=== PATIENT | male | born 1945 | race Caucasian/White ===

== ENCOUNTER 2020-11-16 03:20 | Emergency (ER) | payer OTHER ==
[~2020-11-16] VITALS: Ht 188 cm; Wt 106.6 kg
[2020-11-16 06:08] VITALS: BP 125/71
--- NOTE | 2020-11-18 07:26 | EKG ---
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
== END 2020-11-16 06:10 ==
LOC: ER 03:20
DX: R06.02 Shortness of breath (principal); I10 Essential (primary) hypertension; E11.9 Type 2 diabetes mellitus without complications

== ENCOUNTER 2020-11-21 00:59 | Emergency (ER) | payer OTHER ==
[~2020-11-21] VITALS: Ht 177.8 cm; Wt 68.0 kg
--- NOTE | ~2020-11-21 | EMS ---
[address] [address] EMS Patient Care Report Name: KARINA ALANIS Room #: [facility] Minaya#: [id number] Admission: 11/21/20 Attend Phys: Discharge: Date of : 49 Report #: [id number] THIS REPORT FOR: //name// Report Transmitted: 11/21/2020 00:41 EMS Care Summary [place], [place]/[facility] Incident [id number] @ 11/21/2020 00:26 Incident Location [address] [place] [address] Patient KARINA ALANIS Female, 75 Years 1945 Patient Address [address] [place], [place] [id number] Patient History Diabetes,Hypertension (HTN),Stroke/CVA,Tracheostomy,Respiratory Failure, Patient Allergies No known allergies, Patient Medications Acetaminophen, Amlodipine, Carvedilol, Doxycycline, Glimepiride, Aspirin, Chief Complaint low 02 sat/trach secretions Disposition Transported No Lights/[place] Dispatch Reason Breathing Problem Transported To [facility] Narrative staff checked on pt and found him diaphoretic and with a low 02 sat in the 70's. they suctioned pt and got it up to 80%. they called Dr ann req pt evyobany at [facility]. pt LOC normal for him. pt coughed up a large amount of mucus on [address] [address] EMS Patient Care Report Name: KARINA ALANIS Room #: [facility]#: [id number] Admission: 11/21/20 Attend Phys: Discharge: Date of : 49 Report #: [id number] scene. [place] staff resuctioned pt and now 02 sat w/ trach mask in place at 15L is 95%. pt no longer diaphoretic and breathing appears normal. pt moved to cot and transport w/o issue. pt rests comfortably enroute. Initial Vitals @00:55P: 97,R: 20,BP: 130/89,GCS: 9,SpO2: 96,Revised Trauma: 11, Assessments @00:56MENTAL:Other,SKIN:Diaphoresis,HEENT:Neck/Airway: Other,Head/Face: No Abnormalities,LUNG SOUNDS:ABDOMEN:PELVIS//GI:EXTREMITIES:PULSE:Radial: 2+ Normal,NEURO:@00:56MENTAL:SKIN:No Abnormalities,HEENT:LUNG SOUNDS:ABDOMEN:PELVIS//GI:EXTREMITIES:PULSE:NEURO: Impression Respiratory disorder Procedures @00:47ALS AssessmentResponse: Unchanged@00:55StretcherResponse: Unchanged@00:52Oxygen FlowRate: 15 Device: Trach Mask Response: ImprovedSucceeded Timeline 00:24,Call Received 00:24,Dispatch Notified 00:26,Dispatched 00:28,En Route 00:33,On Scene 00:35,At Patient 00:47,ALS Assessment,Response: Unchanged 00:47,Depart Scene 00:52,Oxygen FlowRate: 15 Device: Trach Mask Response: ImprovedSucceeded, 00:55,BP: 130/89 M,PULSE: 97,RR: 20 R,SPO2: 96 Ox,ETCO2: ,BG: ,PAIN: ,GCS: 9, 00:55,Stretcher,Response: Unchanged 00:56,At Destination 01:22,Call Closed Disclaimer v1.1 Copyright 2020 [employer] This EMS Care Summary contains data elements from the applicable legal record (which may be displayed differently). It is designed to provide pertinent information for the following purposes: continuity of care, clinical quality, and state data reporting. The complete legal record is available to ED staff and administrators of the receiving hospital in [employer]'s Patient Tracker. All data is provided "as is."
[2020-11-21 03:01] LABS: ABSOLUTE NEUTROPHILS 9.9 thou/uL (1.4-8.2); BASOPHILS 0.7 % (0.0-2.0); EOSINOPHILS 1.4 % (0.0-3.0); HEMATOCRIT 33.3 % (42.0-52.0); HEMOGLOBIN 11.1 gm/dL (14.0-18.0); LYMPHOCYTES 16.5 % (24.0-44.0); MCH 31.1 pg (26.0-34.0); MCHC 33.2 g/dL (28.0-37.0); MCV 93.7 fL (80.0-100.0); MONOCYTES 6.1 % (1.0-8.0); PLATELET COUNT 245 thou/uL (150-400); POLYS 75.3 % (36.0-66.0); RBC 3.56 mil/uL (4.50-6.00); RDW 13.4 % (10.5-14.5); WBC 13.2 thou/uL (4.0-11.0)
[2020-11-21 03:14] LABS: CALCIUM 10.4 mg/dL (8.5-10.1); CREATININE 0.9 mg/dL (0.7-1.3); POTASSIUM 4.2 mmol/L (3.5-5.1)
[2020-11-21 03:24] LABS: ALBUMIN 1.9 g/dL (3.4-5.0); TOTAL BILIRUBIN 0.3 mg/dL (0.2-1.0); TOTAL PROTEIN 6.9 g/dL (6.4-8.2)
[2020-11-21] MEDS ORDERED: ASA81BEC PER TUBE (03:54)
[2020-11-21] MEDS ORDERED: CARVEDILOL12.5 MG PER TUBE (03:54)
[2020-11-21] MEDS ORDERED: NORVASC10 MG PER TUBE (03:54)
[2020-11-21] MEDS ORDERED: AMARYL2 M1 PO (03:55)
[2020-11-21 07:21] VITALS: BP 111/76
--- NOTE | 2020-11-21 12:35 | EKG ---
[address] [place] [address] ELECTROCARDIOGRAM REPORT Name: KARINA ALANIS Room #: 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1945 Requested By: Zoë Lieberman Order Number: [id number] MD: Lan Hook Measurements Intervals [place] Rate: 86 P: 39 CO: 166 QRS: 8 QRSD: 89 T: 49 QT: 378 QTc: 452 Interpretive Statements Sinus rhythm Consider inferior infarct Compared to ECG 11/16/2020 03:23:22 Myocardial infarct finding now present Inferior Q waves no longer present Q waves no longer present Electronically Signed On 11-21-2020 12:35:14 CDT by Lan Hook [email or web address] <ELECTRONICALLY SIGNED> By: Lan Hook MD, [facility] 11/21/20 1235 Lan Hook MD, [facility] /EPI
--- NOTE | 2020-11-22 05:41 | NUR ---
LAB CALLED RE POSITIVE BLOOD CULTURES GRAM POSITIVE COCCI
== END 2020-11-21 07:34 ==
LOC: ER 00:59
DX: J95.09 Other tracheostomy complication (principal); Z20.822 Contact with and (suspected) exposure to COVID-19; R91.8 Other nonspecific abnormal finding of lung field; I10 Essential (primary) hypertension; E11.9 Type 2 diabetes mellitus without complications; Z79.899 Other long term (current) drug therapy

== ENCOUNTER 2020-12-09 05:40 | Inpatient (IN) | payer OTHER ==
[2020-12-09] VITALS (7 sets, daily range): BP systolic 92–124; BP diastolic 50–79
[~2020-12-09] VITALS: Ht 172.7 cm; Wt 69.9 kg
--- NOTE | ~2020-12-09 | EMS ---
[address] [address] EMS Patient Care Report Name: KARINA ALANIS Room #: [facility] M.R.#: [id number] Admission: Attend Phys: Discharge: Date of : 49 Report #: [id number] THIS REPORT FOR: //name// Report Transmitted: 12/09/2020 05:22 EMS Care Summary [place], [place]/[facility] Incident [id number] @ 12/09/2020 05:08 Incident Location [address] [place] [address]A Patient KARINA ALANIS Female, 75 Years 1945 Patient Address [address] [place] [address] [address] [id number] Patient History Diabetes,Hypertension (HTN),Stroke/CVA,Tracheostomy,Respiratory Failure, Patient Allergies No known allergies, Patient Medications Doxycycline, Amlodipine, Glimepiride, Carvedilol, Acetaminophen, Aspirin, Chief Complaint trach pt low 02 sat Disposition Transported No Lights/[place] Dispatch Reason Breathing Problem Transported To [facility] Narrative [place] staff called for trach pt who they could not get his 02 sat above 87% after suctioning. pt normally on trach shield at 28%. on arrival pt is alert, non verbal and has limited other communication effort per his norm. pt appears to [address] [address] EMS Patient Care Report Name: KARINA ALANIS [facility] [id number] Admission: Attend Phys: Discharge: Date of : 49 Report #: [id number] answer some "yes/no" questions, but not consistently. 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 he appears in NAD. NRB placed over pt trach site and pt moved to cot in upright position, VS, transport. pt 02 sat on mask is 97%. no changes during transport. Initial Vitals @05:24P: 90,R: 24,BP: 122/78,GCS: 13,SpO2: 96,Revised Trauma: 12, Assessments @05:17MENTAL:Other,SKIN:No Abnormalities,HEENT:Neck/Airway: Other,Head/Face: No Abnormalities,LUNG SOUNDS:ABDOMEN:PELVIS//GI:EXTREMITIES:PULSE:Radial: 2+ Normal,NEURO:Other, Impression Acute Respiratory Distress (Dyspnea) Procedures @05:17ALS AssessmentResponse: Unchanged@05:20StretcherResponse: Unchanged@05:243-Lead ECGResponse: Unchanged@05:19Oxygen FlowRate: 15 Device: Trach Mask Response: UnchangedSucceeded Timeline 05:06,Call Received 05:06,Dispatch Notified 05:08,Dispatched 05:09,En Route 05:14,On Scene 05:17,At Patient 05:17,ALS Assessment,Response: Unchanged 05:19,Oxygen FlowRate: 15 Device: Trach Mask Response: UnchangedSucceeded, 05:20,Stretcher,Response: Unchanged 05:24,3-Lead ECG,Response: Unchanged 05:24,BP: 122/78 M,PULSE: 90,RR: 24 R,SPO2: 96 Ox,ETCO2: ,BG: ,PAIN: ,GCS: 13, 05:26,Depart Scene 05:43,At Destination 05:52,Call Closed Disclaimer v1.1 Copyright 2020 [employer] This EMS Care Summary contains data elements from the applicable legal record (which may be displayed differently). It is designed to provide pertinent information for the following purposes: continuity of care, clinical quality, and state data reporting. The complete legal record is available to ED staff and administrators of the receiving hospital in [employer]'s Patient Tracker. All data is provided "as is."
[~2020-12-09 05:40] MED LIST: AMARYL2 M1 PO; ASA81BEC PER TUBE; CARVEDILOL12.5 MG PER TUBE; NORVASC10 MG PER TUBE
[2020-12-09 06:12] LABS: EOSINOPHILS 0.1 % (0.0-3.0); HEMATOCRIT 28.2 % (42.0-52.0); HEMOGLOBIN 9.6 gm/dL (14.0-18.0); LYMPHOCYTES 29.9 % (24.0-44.0); MCH 30.7 pg (26.0-34.0); MCHC 33.9 g/dL (28.0-37.0); MCV 90.4 fL (80.0-100.0); MONOCYTES 8.2 % (1.0-8.0); PLATELET COUNT 248 thou/uL (150-400); POLYS 60.8 % (36.0-66.0); RBC 3.12 mil/uL (4.50-6.00); RDW 13.6 % (10.5-14.5); WBC 6.6 thou/uL (4.0-11.0)
[2020-12-09 06:15] LABS: CALCIUM 8.8 mg/dL (8.5-10.1); CREATININE 0.8 mg/dL (0.7-1.3); POTASSIUM 4.4 mmol/L (3.5-5.1)
[2020-12-09 06:20] LABS: BE(vivo) 3.3 mmol/L (-2 to +3); PCO2 63.2 mmHg (35.0-45.0); PO2 123.5 mmHg (80.0-100.0)
[2020-12-09 06:21] LABS: ALBUMIN 1.7 g/dL (3.4-5.0); TOTAL BILIRUBIN 0.3 mg/dL (0.2-1.0); TOTAL PROTEIN 6.4 g/dL (6.4-8.2)
[2020-12-09 06:21] LABS: pH 7.309 (7.360-7.450)
[2020-12-09] MEDS ORDERED: METFORMIN HCL500 M3 PO (06:22)
[2020-12-09] MEDS ORDERED: ZINC-22050 MG PO (06:23)
[2020-12-09] MEDS ORDERED: VANCOMYCIN HCL250 MG PER TUBE (06:25)
--- NOTE | 2020-12-09 07:39 | EKG ---
[address] [place] [address] ELECTROCARDIOGRAM REPORT Name: KARINA ALANIS [id number] Admission: 12/09/20 Attend Phys: Discharge: Date of : 49 Report #: [id number] 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
[2020-12-10] MEDS ORDERED: ACETAMINOP160 MG/51 PER TUBE (00:46)
[2020-12-10] MEDS ORDERED: [UNRECOGNIZED DRUG - OTHER] PER TUBE (00:49)
[2020-12-10] MEDS ORDERED: IPRAT-ALBUT 0.5-3 ML INH (00:52)
[2020-12-10] MEDS ORDERED: ENSURE113 GM PER TUBE (00:54)
[2020-12-10] MEDS ORDERED: VITAMIN C100 MG PO (00:56)
[2020-12-10 04:05] VITALS: BP 122/71
[2020-12-10 05:21] LABS: HEMATOCRIT 28.6 % (42.0-52.0); HEMOGLOBIN 9.3 gm/dL (14.0-18.0); MCH 29.8 pg (26.0-34.0); MCHC 32.6 g/dL (28.0-37.0); MCV 91.2 fL (80.0-100.0); RBC 3.14 mil/uL (4.50-6.00); RDW 13.5 % (10.5-14.5); WBC 7.1 thou/uL (4.0-11.0)
[2020-12-10 05:46] LABS: ALBUMIN 1.7 g/dL (3.4-5.0); CREATININE 0.9 mg/dL (0.7-1.3); DIRECT BILIRUBIN 0.2 mg/dL (<0.1-0.2); PHOSPHORUS 3.6 mg/dL (2.5-4.9); POTASSIUM 4.3 mmol/L (3.5-5.1); TOTAL BILIRUBIN 0.3 mg/dL (0.2-1.0); TOTAL PROTEIN 6.3 g/dL (6.4-8.2)
[2020-12-10 07:16] VITALS: BP 177/122
--- NOTE | 2020-12-10 07:46 | NUR ---
PT ARRIVED FROM ER ON CART. PT MOVED OVER, BRIEF REMOVED AND PT CLEANED UP FROM URINE AND BM. STARTED IVF AND IVPB ANTIBIOTICS. CAREPLAN STARTED WITH DATES , INTERVENTIONS IN PLACE AND MED REC COMPLETED. PT HAS HAD CVA IN RECENT PAST. OWENS PLACED DUE TO BEING IMMOBILE AND RED BUTTOCKS. TRACH SHIELD WORKING GREAT. ISOLATION PRECAUTIONS IN PLACE.
[2020-12-10 07:55] VITALS: BP 163/94
--- NOTE | 2020-12-10 08:22 | NUR ---
MICRO[employer]OLOG[employer] CALLED WITH CRITICAL LAB: POSITIVE BLOOD CULTURE CONSISTENT WITH STAPH REPORT PROVIDED TO DAY SHIFT RN
[2020-12-10 11:34] VITALS: BP 116/59
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
[2020-12-10 15:35] VITALS: BP 97/61
--- NOTE | 2020-12-10 16:10 | NUR ---
CARE ASSUMED THIS AM, PT IS DISORIENTED X4, OPENS EYES SPONTANEOUSLY. UNABLE TO FOLLOW ANY COMMANDS. TRACH IN PLACE WITH A SHIELD, 15L OF O2, PT SATURATION ABOVE 90%. PEG TUBE IN PLACE WITH TF RUNNING PER ORDER. OWENS IN PLACE, PATENT AND SECURED. REPOSITION EVERY [address] PL[address] WILL CONTINUE TO MONITOR
[2020-12-10 19:31] VITALS: BP 116/71
[2020-12-11 03:18] VITALS: BP 131/62
[2020-12-11 05:03] LABS: BASOPHILS 0.1 % (0.0-2.0); HEMATOCRIT 23.9 % (42.0-52.0); LYMPHOCYTES 12.6 % (24.0-44.0); MCH 30.7 pg (26.0-34.0); MCHC 33.5 g/dL (28.0-37.0); MCV 91.7 fL (80.0-100.0); MONOCYTES 4.2 % (1.0-8.0); PLATELET COUNT 212 thou/uL (150-400); POLYS 83.1 % (36.0-66.0); RBC 2.61 mil/uL (4.50-6.00); RDW 13.5 % (10.5-14.5); WBC 10.8 thou/uL (4.0-11.0)
[2020-12-11 05:31] LABS: ALBUMIN 1.5 g/dL (3.4-5.0); ANION GAP 6 mmol/L (7-16); BUN 32 mg/dL (7-18); CALCIUM 8.9 mg/dL (8.5-10.1); CHLORIDE 104 mmol/L (98-107); CO2 28 mmol/L (21-32); CREATININE 0.7 mg/dL (0.7-1.3); DIRECT BILIRUBIN < 0.1 mg/dL (<0.1-0.2); GLUCOSE 225 mg/dL (74-106); PHOSPHORUS 2.6 mg/dL (2.5-4.9); POTASSIUM 4.6 mmol/L (3.5-5.1); SGOT 38 U/L (15-37); SGPT 48 U/L (30-65); SODIUM 138 mmol/L (136-145); TOTAL BILIRUBIN 0.2 mg/dL (0.2-1.0); TOTAL PROTEIN 5.8 g/dL (6.4-8.2)
[2020-12-11 05:37] LABS: D-DIMER 1.35 ug/mLFEU (0.19-0.50); INR 1.01
[2020-12-11 08:15] VITALS: BP 128/65
[2020-12-11 11:00] VITALS: BP 109/61
--- NOTE | 2020-12-11 12:27 | NUR ---
PT PICC LINE DISCONTINUED DUE TO PICC LINE COMING OUT. PT CAME IN WITH THE PICC LINE FROM FACILITY.
--- NOTE | 2020-12-11 12:41 | NUR ---
GAVE PT A BATH, FULL BED CHANGE COMPLETED. WOUND CARE COMPLETED AND PICTURES TAKEN. PT UNABLE TO FOLLOW COMMANDS. DISORIENTED X4. TRACH AND TRACH SHILED IN PLACE. PT O2 SAT ABOVE 90%. OWENS CATHETER IN PLACE, PATENT AND SECURED. PT REPOSITION EVERY [address]UTION [address] PL[address]. PALLIATIVE TEAM CONSULTED. WILL CONTINUE TO MONITOR
--- NOTE | 2020-12-11 14:24 | NUR ---
SARI reviewed chart and spoke with nursing and attending physician. Pt remains in Enhanced Isolation due to COVID. Pt is afebrile. Attending physician discussed plan of care with pt's legal guardian, Melisa Kumarnings. Pt's code status changed to DNR. Pt's legal guardian is agreeable with pt being admitted onto hospice. SARI faxed clinical info to [facility] and discussed case with [place] post-acute liaison. [place] has a contract with [facility]. SARI spoke with pt's legal guardian via phone to provide update and discuss discharge plan. Melisa is agreeable with pt going back to [facility] with hospice. Melisa prefers to use [facility] if possible. Melisa will be out of the office the rest of the week and will need to sign hospice admission ppwk today. SARI contacted [place] post-acute liaison to ask about [facility]. Awaiting response at this time. SARI is following to assist as needed with discharge planning.
[2020-12-11 16:18] VITALS: BP 123/68
[2020-12-11 16:32] VITALS: BP 122/74
[2020-12-11 19:31] VITALS: BP 112/60
[2020-12-12 03:30] VITALS: BP 118/71
[2020-12-12 05:17] LABS: ABSOLUTE NEUTROPHILS 6.7 thou/uL (1.4-8.2); BASOPHILS 0.2 % (0.0-2.0); HEMATOCRIT 25.1 % (42.0-52.0); HEMOGLOBIN 8.4 gm/dL (14.0-18.0); LYMPHOCYTES 12.9 % (24.0-44.0); MCH 30.9 pg (26.0-34.0); MCHC 33.3 g/dL (28.0-37.0); MCV 92.8 fL (80.0-100.0); MONOCYTES 4.9 % (1.0-8.0); PLATELET COUNT 227 thou/uL (150-400); RDW 13.3 % (10.5-14.5); WBC 8.2 thou/uL (4.0-11.0)
[2020-12-12 05:49] LABS: ALBUMIN 1.5 g/dL (3.4-5.0); ANION GAP 4 mmol/L (7-16); BUN 32 mg/dL (7-18); CHLORIDE 109 mmol/L (98-107); CO2 30 mmol/L (21-32); CREATININE 0.6 mg/dL (0.7-1.3); DIRECT BILIRUBIN < 0.1 mg/dL (<0.1-0.2); GLUCOSE 263 mg/dL (74-106); PHOSPHORUS 1.9 mg/dL (2.5-4.9); POTASSIUM 4.8 mmol/L (3.5-5.1); SGOT 33 U/L (15-37); SGPT 50 U/L (30-65); SODIUM 143 mmol/L (136-145); TOTAL BILIRUBIN 0.2 mg/dL (0.2-1.0); TOTAL PROTEIN 5.8 g/dL (6.4-8.2)
[2020-12-12 07:29] VITALS: BP 107/57
--- NOTE | 2020-12-12 07:57 | NUR ---
PT VANCO TROUGH AGAIN CAME BACK AT 24. HELD 2100 DOSE AND CONTACTED APPROPRIATE PARTIES. NEW DOSE FOR VANCO IS 1000MG/250. OWENS IN DUE TO IMMOBILIZATION DUE TO RECENT CVA. TRACH SHIELD IN PLACE. LESS SECRETIONS AND LESS FREQUENT SUCTIONING. PEG TUBE WAS CLOGGED THIS AM DUE TO ZERO H20 FLUSHES EXCEPT WITH MEDS. CLEARED OBSTRUCTION AND TUBE FEEDING RESUMED.
[2020-12-12 09:08] LABS: HIV ANTIBODY Non Reactive (Non Reactive)
[2020-12-12 11:26] VITALS: BP 107/58
--- NOTE | 2020-12-12 13:19 | NUR ---
DISCHARGE NOTE: SARI reviewed chart and spoke with nursing and attending physician. Pt remains in Enhanced Isolation due to COVID. Pt is medically stable for discharge back to [facility] with [facility]. SARI spoke with Areli at [facility], who confirms they received the consents and Outside the Hospital DNR form signed by pt's legal guardian/public import/export administrator, Melisa Gonzalez. DNR form faxed to SARI and signed by attending physician. SARI faxed discharge ppwk to hospice and [facility] liaison. SARI confirmed that [facility] is able to accept pt back today with hospice. chain sales consultant to do an onsite eval this afternoon prior to pt's discharge. SARI notified pt's nurse. Ambulance scheduled for 1600. Palliative care TAXI DANCER had spoken with pt's friend, Willard Head, who was listed on facility face sheet as contact. SARI spoke with Abbie in the [facility] PA office to provide update and notify of discharge timeframe and plan. Abbie gave consent for pt to be discharged. SARI faxed discharge ppwk to the PA office. SARI notified the PA office that Willard was contacted by the hospital and pt's case was discussed. The PA office will contact [facility] to have info changed on their face sheet. SARI notified [place] post-acute liaison that the PA office does not want Willard listed on the face sheet. SARI faxed ambulance and DNR form to 3W to be placed on pt's chart. Nursing to call report to the facility. Chart copy requested. No additional SW needs identified at this time, but is available to assist should needs arise.
[2020-12-14 06:30] LABS: T-SPOT.TB Negative
== END 2020-12-12 16:41 | DRG 177 ==
LOC: ER 05:40 → EROBS 08:05 → 3W 08:05
PROVIDERS: Emergency Medicine; Internal Medicine Pulmonary Disease; Specialist; ADMIT Hospitalist; ATTEND Hospitalist
PROC: XW033E5 Introduction of Remdesivir Anti-infective into Peripheral Vein, Percutaneous Approach, New Technology Group 5 (ICD-10-PCS; principal; 2020-12-09)
DX: U07.1 COVID-19 (principal); J96.21 Acute and chronic respiratory failure with hypoxia; J96.22 Acute and chronic respiratory failure with hypercapnia; J12.82 Pneumonia due to coronavirus disease 2019; R78.81 Bacteremia; I69.351 Hemiplegia and hemiparesis following cerebral infarction affecting right dominant side; I10 Essential (primary) hypertension; E11.9 Type 2 diabetes mellitus without complications; I48.91 Unspecified atrial fibrillation; R13.10 Dysphagia, unspecified; J98.6 Disorders of diaphragm; R53.81 Other malaise; Z51.5 Encounter for palliative care; D64.9 Anemia, unspecified; Z66 Do not resuscitate; B95.7 Other staphylococcus as the cause of diseases classified elsewhere; Z79.899 Other long term (current) drug therapy; Z74.01 Bed confinement status; Z93.1 Gastrostomy status
CPT/HCPCS: 10879